=== PATIENT | male | born 1975 | race Caucasian/White ===

== ENCOUNTER → 2018-02-27 | Outpatient (REF) | payer OTHER, MEDICAID ==
[2018-02-27 15:41] LABS: ALBUMIN 3.6 GM/DL (3.2-5.2); ALBUMIN/GLOBULIN RATIO 1.06 (1.00-1.93); ALKALINE PHOSPHATASE 71 U/L (45-117); ALT/SGPT 22 U/L (12-78); ANION GAP 8 MEQ/L (8-16); AST/SGOT 14 U/L (7-37); BILIRUBIN,TOTAL 0.3 MG/DL (0.2-1.0); BLOOD UREA NITROGEN 9 MG/DL (7-18); CALCIUM LEVEL 8.4 MG/DL (8.5-10.1); CARBON DIOXIDE LEVEL 30 MEQ/L (21-32); CHLORIDE LEVEL 102 MEQ/L (98-107); CHOLESTEROL LEVEL 186 MG/DL (<200); CREATININE FOR GFR 1.04 MG/DL (0.70-1.30); GLOMERULAR FILTRATION RATE > 60.0 (>60); GLUCOSE, FASTING 93 MG/DL (70-100); HDL CHOLESTEROL 34 MG/DL (>40); NON-HDL-C 152 MG/DL; POTASSIUM SERUM 3.3 MEQ/L (3.5-5.1); SODIUM LEVEL 140 MEQ/L (136-145); TRIGLYCERIDES LEVEL 90 MG/DL (<150)
== END ==
LOC: M LAB REF 13:33
DX: I10 Essential (primary) hypertension (principal)

== ENCOUNTER 2018-05-18 12:10 | Outpatient (RCR) | payer OTHER | END 2018-06-11 | LOC: M CR 12:10 | DX: Z98.61 Coronary angioplasty status (principal) | CPT/HCPCS: 93798 ==

== ENCOUNTER → 2018-05-23 | Outpatient (REF) | LOC: M SMT 09:58 | DX: M17.11 Unilateral primary osteoarthritis, right knee (principal) ==

== ENCOUNTER 2018-12-01 14:02 | Outpatient (RCR) | payer OTHER ==
--- NOTE | 2018-11-27 10:31 | CARECAPL ---
Assessment Account #s: Initial Assessment General Diagnoses: NSTEMI, PTCA Date of event: Mar 28, 2018 Physician: Cristian Giordano Allergies: Coded Allergies: No Known Drug Allergy (Unverified Allergy, Mild, 12/11/12) Date Entered Program: Nov 27, 2018 Risk strat for cardiac event: High Exercise Date: Nov 27, 2018 Assessment: Initial Assessment Exercise Prescription Plan TO EDUCATE AND BUILD ENDURANCE THROUGH MONITORED EXERCISE Modalities initiated: Nustep (METS=1.2/RPE=3), Arm Aerometer (METS=2.62/RPE=4), Recumbent Bike (METS=3.1/RPE=3) Frequency: 3 Duration (Minutes) 30-60 minutes total exercise a day. 10-15 work intervals in minutes. 5 MIN PRN rest intervals in minutes. Functional Capacity Goal Sustained Metabolic Equivalent of a task (MET) goal of 4.5-5.5 for 15-20 minutes. Intensity: 3-Moderate Progression (METS) Increase by: 0.5 METS every: 5 sessions Angina with ex: No Target Heart Rate 35-40 BASED ON BETA DAVID THERAPY Resistance Training: Yes Weight (pounds): 2 Reps: 12-15 (WILL ADD) Hypertension: Yes Hypertension controlled with: Medication Resting 153/95 Peak Exercise BP 134/90 Medications Scheduled (Vyvanse), 30 MG PO DAILY, (Reported) Aspirin (Ecotrin Low Strength), 1 TAB PO DAILY, (Reported) Atorvastatin Calcium (Atorvastatin Calcium), 1 TAB PO DAILY, (Reported) Bupropion HCl (Wellbutrin Sr), 150 MG PO DAILY, (Reported) Chlorthalidone (Chlorthalidone), 1 TAB PO DAILY, (Reported) Clopidogrel Bisulfate (Plavix), 75 MG PO DAILY, (Reported) Fluoxetine HCl (Prozac), 20 MG PO DAILY, (Reported) Lisinopril (Lisinopril), 5 MG PO DAILY, (Reported) Metoprolol Succinate (Metoprolol Succinate ER), 25 MG PO DAILY, (Reported) Nitroglycerin (Nitroglycerin), 0.4 MG SL ASDIRECTED, (Reported) Current BP 134/90 Med Change: No Intervention Resistance Training: Yes Education: Self pulse, Ex safety, S/S to report, Low NA diet, BP medication, RPE Scale, Equipment orientation, warm up/cool down, Understand BP, Physical Active Target Goals Individual exercise Rx (1) BP 140/90 or 130/80 if DM or CKD (1) Aerobic active 30+min 5 days per week (1) Nutrition Date: Nov 27, 2018 Assessment: Initial Assessment Lipid- med/supplement ATORVASTATIN Med Change: No Diabetes Diabetes: No Monitor Blood Sugar at home: No Medication Change: No Weight Management Weight (lbs): 184.6 Height (inches): 68 Waist Circumference (Inches): 40.5 BMI: 28 Weight goal: 150 Alcohol: special Diet Access Tool: Rate your plate Score: 41 Current Weight (pounds): 184.6 Intervention Fraud Manager Consult: No Nurse/patient discussion: Yes Dietary Goals TO MAKE HEART HEALTHY CHOICES Diet Class: Yes Referral to Diabetes education: No Referral to lipid clinic: No Referral to weight mangement p: No Education Eating Healthy Target goal LDL-C<100 if triglycerides are >200 Non-HDL-C should be <130 (1) LDL-C<70 for high risk patients (4) HbA1c<7% (1) BMI<25 Waist cir<40in M/<35in F (1) Education Date: Nov 27, 2018 Assessment: Initial Assessment Knowledge Test Score: 9 Family Support: Yes Tobacco use: Yes Tobacco Use Cigarettes smoked per day: 30 Smokeless tobacco: No Intervention Referral to smoking cessation: No Individual education and couns: Yes Tobacco Adjunct: No Education class schedule given: No Attended education classes: No Education: tobacco triggers, CAD, Risk factors, med compliance, cardiac A&P, Angina S/S, Sexuality Target Goals Complete cessation of tobacco use (1). Psychosocial Date: Nov 27, 2018 Assessment: Initial Assessment Psych Test (Initial/Discharge) Tool Used: CESD Score: 2 Intervention Physician Consult: No Physician Referral: No Psychotropic medication WELLBUTRIN Med Change: No Stress Management Class: No Uses Stress Management Skills: Yes Education Education: Coping Techniques, S/S depression, Relaxation Techniques Target Goal Assess presence or absence of depression using a valid screening tool (1). Maximize coping skills (2). Positive support system (2). Patient/Program Goal Preventative Medication: Yes Aspirin, Yes Clopidogrel, Yes Beta blockade, Yes Statin/OTR lipid Lowering Fall Risk Assess: Yes (NOT A FALL RISK) Provider Assessment Session Number: 1 Provider Assessment: Proceed with rehab Noel Pennington RN Nov 27, 2018 10:31
[~2018-12-01 14:02] MED LIST: ATOR80TA59 PO; BUPR15TA PO; CHLO50TA PO; ECOT81TA5 PO; LISI-542 PO; METO1TAB32 PO; NITR0.4S14 SL; PLAV1TAB2 PO; PROZ20CA11 PO; VYVA30CA4 PO
== END 2018-12-10 ==
LOC: M CR 14:02
PROVIDERS: ATTEND Internal Medicine Cardiovascular Disease
DX: I21.3 ST elevation (STEMI) myocardial infarction of unspecified site (principal); Z98.61 Coronary angioplasty status

== ENCOUNTER 2019-01-08 10:48 | Outpatient (RCR) | payer OTHER ==
--- NOTE | 2018-12-18 15:43 | CARECAPL ---
Assessment Account #s: Re-Assessment I General Diagnoses: NSTEMI, PTCA Date of event: Mar 28, 2018 Physician: Cristian Giordano Allergies: Coded Allergies: MS - No Known Drug Allergy (Unverified Allergy, Mild, 12/11/12) Date Entered Program: Nov 27, 2018 Risk strat for cardiac event: High Exercise Date: Dec 18, 2018 Assessment: Re-Assessment I Exercise Prescription Plan TO EDUCATE AND BUILD ENDURANCE THROUGH MONITORED EXERCISE Modalities initiated: Treadmill (METS=2.53/RPE=2), Nustep (METS=3.2/RPE=2), Arm Aerometer (MEETS=2.62/RPE=2), Dumbells (2#/RPE=2), Recumbent Bike (METS=3.1/RPE=2) Frequency: 3 Duration (Minutes) 30-60 minutes total exercise a day. 10-15 work intervals in minutes. 5 MIN PRN rest intervals in minutes. Functional Capacity Goal Sustained Metabolic Equivalent of a task (MET) goal of 4.5-5.5 for 15-20 minutes. Intensity: 3-Moderate Progression (METS) Increase by: 0.5 METS every: 5 sessions TOLERATED Angina with ex: No Target Heart Rate +35-40 BASED ON BETA DAVID THERAPY Resistance Training: Yes Weight (pounds): 2 Reps: 12-15 Hypertension: Yes Hypertension controlled with: Medication Resting 138/90 Peak Exercise BP 136/80 Medications Scheduled Aspirin (Ecotrin), 1 TAB PO DAILY, (Reported) Atorvastatin Calcium (Atorvastatin Calcium), 1 TAB PO DAILY, (Reported) Bupropion HCl (Wellbutrin Sr), 300 MG PO DAILY, (Reported) Chlorthalidone (Chlorthalidone), 1 TAB PO DAILY, (Reported) Clopidogrel Bisulfate (Plavix), 75 MG PO DAILY, (Reported) Lisinopril (Lisinopril), 5 MG PO DAILY, (Reported) Metoprolol Succinate (Metoprolol Succinate), 25 MG PO DAILY, (Reported) Nitroglycerin (Nitroglycerin), 0.4 MG SL ASDIRECTED, (Reported) Current BP 124/80 Med Change: No Intervention Resistance Training: Yes Education: Self pulse, Ex safety, S/S to report, Low NA diet, BP medication, RPE Scale, Equipment orientation, warm up/cool down, Understand BP, Physical Active Target Goals Individual exercise Rx (1) BP 140/90 or 130/80 if DM or CKD (1) Aerobic active 30+min 5 days per week (1) Nutrition Date: Dec 18, 2018 Assessment: Re-Assessment I Lipid- med/supplement ATORVASTATIN Med Change: No Diabetes Diabetes: No Monitor Blood Sugar at home: No Medication Change: No Weight Management Weight (lbs): 178.8 Special Diet: low salt, low-fat Alcohol: special Current Weight (pounds): 178.8 Intervention Magneto Repairer Consult: No Nurse/patient discussion: Yes Dietary Goals TO MAKE HEART HEALTHY CHOICES Diet Class: No Referral to Diabetes education: No Referral to lipid clinic: No Referral to weight mangement p: No Education Eating Healthy Target goal LDL-C<100 if triglycerides are >200 Non-HDL-C should be <130 (1) LDL-C<70 for high risk patients (4) HbA1c<7% (1) BMI<25 Waist cir<40in M/<35in F (1) Education Date: Dec 18, 2018 Assessment: Re-Assessment I Learning Barriers: ready Family Support: Yes Tobacco use: Yes Tobacco Use Cigarettes smoked per day: 30 Smokeless tobacco: No Intervention Referral to smoking cessation: No Individual education and couns: Yes (PATIENT STATES NOT READY TO QUIT SMOKING) Tobacco Adjunct: No Education class schedule given: No Attended education classes: No Education: tobacco triggers, CAD, Risk factors, med compliance, cardiac A&P, Angina S/S, Sexuality Target Goals Complete cessation of tobacco use (1). Psychosocial Date: Dec 18, 2018 Assessment: Re-Assessment I Intervention Physician Consult: No Physician Referral: No Psychotropic medication PROZAC AND WELLBUTRIN Med Change: No Stress Management Class: No Uses Stress Management Skills: Yes Education Education: Coping Techniques, S/S depression, Relaxation Techniques Target Goal Assess presence or absence of depression using a valid screening tool (1). Maximize coping skills (2). Positive support system (2). Patient/Program Goal Preventative Medication: Yes Aspirin, Yes Clopidogrel, Yes Beta blockade, Yes CESAR Inhibitor, Yes Statin/OTR lipid Lowering Fall Risk Assess: Yes (NOT A FALL RISK) Provider Assessment Provider Assessment: Proceed with rehab Noel Pennington RN Dec 18, 2018 15:43
--- NOTE | 2019-01-01 12:52 | CARECAPL ---
Assessment Account #s: Re-Assessment II General Diagnoses: NSTEMI, PTCA Date of event: Mar 28, 2018 Physician: Cristian Giordano Allergies: Coded Allergies: MS - No Known Drug Allergy (Unverified Allergy, Mild, 12/11/12) Date Entered Program: Nov 27, 2018 Risk strat for cardiac event: High (cardiac arrest) Exercise Date: Jan 01, 2019 Assessment: Re-Assessment II Exercise Prescription Plan to educate about cardiac risk factors and to provide a monitored exercise program to help build endurance and strength Modalities initiated: Treadmill (2.5/1.0 mts 3.26 rpe 4), Cardio-Strider, Nustep (L4mts 2.1 rep 3), Arm Aerometer (1.5 mts 2.66 rpe 3), Dumbells, Recumbent Bike (R2 mts 1 rpe 3) Frequency: 2-3 Duration (Minutes) 7-10 minutes total exercise a day. 30-60 work intervals in minutes. prn - rest intervals in minutes. Functional Capacity Goal Sustained Metabolic Equivalent of a task (MET) goal of 4.5-5.5 for 15-20 minutes. Intensity: 3-Moderate Progression (METS) Increase by: .5 METS every: 2-3 sessions Target Heart Rate r+35-40 betablocker therapy Resistance Training: Yes Weight (pounds): 3 Reps: 6-8 Medications Scheduled Aspirin (Ecotrin), 1 TAB PO DAILY, (Reported) Atorvastatin Calcium (Atorvastatin Calcium), 1 TAB PO DAILY, (Reported) Bupropion HCl (Wellbutrin Sr), 300 MG PO DAILY, (Reported) Chlorthalidone (Chlorthalidone), 1 TAB PO DAILY, (Reported) Clopidogrel Bisulfate (Plavix), 75 MG PO DAILY, (Reported) Lisinopril (Lisinopril), 5 MG PO DAILY, (Reported) Metoprolol Succinate (Metoprolol Succinate), 25 MG PO DAILY, (Reported) Nitroglycerin (Nitroglycerin), 0.4 MG SL ASDIRECTED, (Reported) Current BP 118/94 Med Change: No Education Goals Met: No Target Goals Individual exercise Rx (1) BP 140/90 or 130/80 if DM or CKD (1) Aerobic active 30+min 5 days per week (1) Nutrition Date: Jan 01, 2019 Assessment: Re-Assessment II Med Change: No Diabetes Diabetes: No Current Weight (pounds): 177 Weight Goal to maintain current weight, make healthier choices Intervention Mine Laborer Consult: No Nurse/patient discussion: Yes Diet Class: Yes (wiil see during program) Referral to Diabetes education: No Referral to lipid clinic: No Referral to weight mangement p: No Education Eating Healthy Education Goals Met: No Target goal LDL-C<100 if triglycerides are >200 Non-HDL-C should be <130 (1) LDL-C<70 for high risk patients (4) HbA1c<7% (1) BMI<25 Waist cir<40in M/<35in F (1) Education Date: Jan 01, 2019 Intervention Referral to smoking cessation: Yes Individual education and couns: Yes Tobacco Adjunct: Yes Education class schedule given: Yes Attended education classes: Yes Education: tobacco triggers (will encourage pt in smoking cessation), CAD, Risk factors, med compliance, cardiac A&P, Angina S/S, Sexuality Education Goals Met: No (continues to smoke. States not read) Target Goals Complete cessation of tobacco use (1). Psychosocial Date: Jan 01, 2019 Assessment: Re-Assessment II Intervention Physician Consult: No Physician Referral: No Psychotropic medication on maintenance medications prior to admission to Cardiac rehab Med Change: No Stress Management Class: Yes Uses Stress Management Skills: Yes Education Education: Coping Techniques, S/S depression, Relaxation Techniques, Other Education Goals Met: No Target Goal Assess presence or absence of depression using a valid screening tool (1). Maximize coping skills (2). Positive support system (2). Patient/Program Goal Preventative Medication: Yes Aspirin, Yes Clopidogrel, Yes Beta blockade, Yes CESAR Inhibitor, Yes Statin/OTR lipid Lowering Fall Risk Assess: No Provider Assessment Session Number: 6 Provider Assessment: No changes (slow to start program. Attendance better) Stephany Rapp RN Jan 01, 2019 11:22
== END 2019-01-09 ==
LOC: M CR 10:48
PROVIDERS: ATTEND Internal Medicine Cardiovascular Disease
DX: I21.4 Non-ST elevation (NSTEMI) myocardial infarction (principal)

== ENCOUNTER → 2020-05-15 | Outpatient (REF) | payer OTHER, MEDICAID ==
[2020-05-15 16:02] LABS: BASO # 0.1 10^3/uL (0.0-0.2); BASO % 1.1 % (0.0-1.0); EOS # 0.5 10^3/uL (0.0-0.5); EOS % 4.1 % (0.0-3.0); HEMOGLOBIN 15.4 g/dl (13.5-17.5); LYMPH # 3.9 10^3/uL (1.5-5.0); LYMPH % 34.6 % (24.0-44.0); MEAN CORPUSCULAR HEMOGLOBIN 31.6 pg (27.0-33.0); MEAN CORPUSCULAR HGB CONC 33.5 g/dl (32.0-36.5); MEAN CORPUSCULAR VOLUME 94.3 fl (80.0-96.0); MONO # 0.9 10^3/uL (0.0-0.8); MONO % 8.1 % (0.0-5.0); NEUTROPHILS # 5.8 10^3/uL (1.5-8.5); NEUTROPHILS % 51.6 % (36.0-66.0); PLATELET COUNT, AUTOMATED 288 10^3/uL (150-450); RED BLOOD COUNT 4.88 10^6/uL (4.30-6.10); WHITE BLOOD COUNT 11.1 10^3/uL (4.0-10.0)
[2020-05-15 17:06] LABS: HEMOGLOBIN A1c 5.6 %
[2020-05-15 17:42] LABS: ALBUMIN 4.1 GM/DL (3.2-5.2); ALT/SGPT 21 U/L (12-78); BILIRUBIN,TOTAL 0.6 MG/DL (0.2-1.0); BLOOD UREA NITROGEN 13 MG/DL (7-18); CALCIUM LEVEL 8.9 MG/DL (8.5-10.1); CARBON DIOXIDE LEVEL 28 MEQ/L (21-32); CHLORIDE LEVEL 103 MEQ/L (98-107); CHOLESTEROL LEVEL 126 MG/DL (<200); CREATININE FOR GFR 1.28 MG/DL (0.70-1.30); FREE T4 1.41 NG/DL (0.76-1.46); GLOMERULAR FILTRATION RATE > 60.0 (>60); GLUCOSE, FASTING 93 MG/DL (70-100); HDL CHOLESTEROL 25 MG/DL (>40); LDL CHOLESTEROL 69 MG/DL (<100); NON-HDL-C 101 MG/DL; POTASSIUM SERUM 3.9 MEQ/L (3.5-5.1); SODIUM LEVEL 136 MEQ/L (136-145); TOTAL 25(OH) VITAMIN D 18.6 NG/ML (30.0-100.0); TOTAL PROTEIN 7.7 GM/DL (6.4-8.2); TRIGLYCERIDES LEVEL 159 MG/DL (<150)
== END ==
LOC: M LAB REF 14:38
PROVIDERS: ATTEND Nurse Practitioner Family
DX: E87.6 Hypokalemia (principal); F17.210 Nicotine dependence, cigarettes, uncomplicated; E78.5 Hyperlipidemia, unspecified; F41.1 Generalized anxiety disorder; I10 Essential (primary) hypertension; F33.42 Major depressive disorder, recurrent, in full remission

== ENCOUNTER 2020-08-19 11:46 | Emergency (ER) | payer MEDICAID, OTHER ==
[~2020-08-19] VITALS: Ht 170.2 cm; Wt 76.8 kg
[2020-08-19 12:36] LABS: BASO # 0.1 10^3/uL (0.0-0.2); BASO % 0.8 % (0.0-1.0); EOS # 0.5 10^3/uL (0.0-0.5); EOS % 3.8 % (0.0-3.0); HEMATOCRIT 46.2 % (42.0-52.0); HEMOGLOBIN 15.2 g/dl (13.5-17.5); LYMPH # 3.4 10^3/uL (1.5-5.0); LYMPH % 28.2 % (24.0-44.0); MEAN CORPUSCULAR HEMOGLOBIN 30.8 pg (27.0-33.0); MEAN CORPUSCULAR HGB CONC 32.9 g/dl (32.0-36.5); MEAN CORPUSCULAR VOLUME 93.7 fl (80.0-96.0); MONO # 1.2 10^3/uL (0.0-0.8); NEUTROPHILS # 6.9 10^3/uL (1.5-8.5); NEUTROPHILS % 56.6 % (36.0-66.0); PLATELET COUNT, AUTOMATED 311 10^3/uL (150-450); RED BLOOD COUNT 4.93 10^6/uL (4.30-6.10); WHITE BLOOD COUNT 12.2 10^3/uL (4.0-10.0)
[2020-08-19 13:04] LABS: ALBUMIN 3.9 GM/DL (3.2-5.2); ALT/SGPT 25 U/L (12-78); BILIRUBIN,DIRECT < 0.1 MG/DL (0.0-0.2); BILIRUBIN,TOTAL 0.3 MG/DL (0.2-1.0); BLOOD UREA NITROGEN 12 MG/DL (7-18); CALCIUM LEVEL 9.3 MG/DL (8.5-10.1); CARBON DIOXIDE LEVEL 30 MEQ/L (21-32); CHLORIDE LEVEL 100 MEQ/L (98-107); CK-MB VALUE MASS 1.1 NG/ML (<3.6); CPK CREATINE PHOSPHOKINASE 127 U/L (39-308); CREATININE FOR GFR 1.33 MG/DL (0.70-1.30); GLOMERULAR FILTRATION RATE > 60.0 (>60); GLUCOSE, FASTING 103 MG/DL (70-100); MB/CK RELATIVE INDEX 0.87 (< OR =4); POTASSIUM SERUM 3.5 MEQ/L (3.5-5.1); SODIUM LEVEL 137 MEQ/L (136-145); TOTAL PROTEIN 7.5 GM/DL (6.4-8.2); TROPONIN I < 0.02 NG/ML (< 0.10)
[2020-08-19] MEDS ORDERED: ALBUTEROL 90 MCG/ACT 8GM HFA INHALER INH ONE (13:45)
[2020-08-19 14:23] LABS: ABG BASE EXCESS 5.3 (-2.0-2.0); ABG HCO3 29.8 MEQ/L (22.0-26.0); ABG O2 SATURATION 94.1 % (95.0-99.0); ABG STANDARD HCO3 29.1 MEQ/L (22.0-26.0); ABG TOTAL CO2 31.1 MEQ/L (22.0-29.0); ABG pH (ARTERIAL) 7.459 UNITS (7.350-7.450)
--- NOTE | 2020-08-19 15:28 | REP ---
INDICATION: sob. COMPARISON: None. TECHNIQUE: SINGLE PORTABLE AP VIEW OF THE CHEST WAS PERFORMED. FINDINGS: THERE IS NO ACUTE INFILTRATE OR PULMONARY EDEMA. LUNGS ARE CLEAR. HEART IS NOT SIGNIFICANTLY ENLARGED. MEDIASTINAL SILHOUETTE IS UNREMARKABLE. THE VISUALIZED OSSEOUS STRUCTURES ARE INTACT. IMPRESSION: NO ACUTE PULMONARY DISEASE. <Electronically signed by Dilip Frank > 08/19/20 [id number]
[2020-08-19] MEDS ORDERED: PROAAER10 INH (15:37)
[2020-08-19] MEDS ORDERED: FLON1SPR NARES (15:38)
[2020-08-19 15:45] VITALS: BP 158/80
--- NOTE | 2020-08-20 08:16 | ECGEPIP ---
[facility] - ED Test Date: 2020-08-19 Pat Name: FLORENCE LADD Department: Room: - Gender: Male Black Off Worker: MARCELINO : 1975 Requested By: CRISTIAN Nagy Order Number: [id number] Reading MD: Cristian Patel Measurements Intervals [place] Rate: 78 P: 41 IA: 137 QRS: 262 QRSD: 121 T: 32 QT: 384 QTc: 440 Interpretive Statements SINUS RHYTHM POSSIBLE RIGHT VENTRICULAR HYPERTROPHY Comparison tracing not on file Electronically Signed on 08-20-2020 8:16:10 EST by Cristian Patel
== END 2020-08-19 16:01 | disposition home or self-care (01) ==
LOC: EDBD 11:46 → M ED 11:46
DX: R06.02 Shortness of breath (principal); R05 Cough; I10 Essential (primary) hypertension; J44.9 Chronic obstructive pulmonary disease, unspecified; Z95.5 Presence of coronary angioplasty implant and graft; F17.200 Nicotine dependence, unspecified, uncomplicated; Z79.899 Other long term (current) drug therapy; Z79.82 Long term (current) use of aspirin; Z79.02 Long term (current) use of antithrombotics/antiplatelets

== ENCOUNTER → 2020-11-07 | Outpatient (REF) | payer OTHER ==
[~2020-11-07] MED LIST changes: +FLON1SPR NARES; -LISI-542 PO; +LISI-898 PO; +PROAAER10 INH
[2020-11-07 12:37] LABS: BASO # 0.1 10^3/uL (0.0-0.2); BASO % 1.1 % (0.0-1.0); EOS # 0.4 10^3/uL (0.0-0.5); EOS % 3.6 % (0.0-3.0); HEMATOCRIT 44.9 % (42.0-52.0); HEMOGLOBIN 14.7 g/dl (13.5-17.5); LYMPH # 3.4 10^3/uL (1.5-5.0); LYMPH % 27.7 % (24.0-44.0); MEAN CORPUSCULAR HEMOGLOBIN 30.9 pg (27.0-33.0); MEAN CORPUSCULAR HGB CONC 32.7 g/dl (32.0-36.5); MEAN CORPUSCULAR VOLUME 94.5 fl (80.0-96.0); NEUTROPHILS # 7.3 10^3/uL (1.5-8.5); PLATELET COUNT, AUTOMATED 291 10^3/uL (150-450); RED BLOOD COUNT 4.75 10^6/uL (4.30-6.10); WHITE BLOOD COUNT 12.3 10^3/uL (4.0-10.0)
[2020-11-07 13:15] LABS: BILIRUBIN,TOTAL 0.3 MG/DL (0.2-1.0); CALCIUM LEVEL 9.1 MG/DL (8.5-10.1); CHOLESTEROL RISK RATIO 6.032 (<5); CREATININE FOR GFR 1.44 MG/DL (0.70-1.30); GLOMERULAR FILTRATION RATE 56.5 (>60); POTASSIUM SERUM 4.2 MEQ/L (3.5-5.1); TOTAL PROTEIN 7.3 GM/DL (6.4-8.2)
[2020-11-07 13:41] LABS: HEMOGLOBIN A1c 5.6 %
[2020-11-07 14:03] LABS: TOTAL 25(OH) VITAMIN D 78.3 NG/ML (30.0-100.0)
[2020-11-09 08:08] LABS: PSA TOTAL 0.6 ng/mL (0.0-4.0)
== END ==
LOC: M LAB REF 11:35
PROVIDERS: ATTEND Nurse Practitioner Family
DX: F41.1 Generalized anxiety disorder (principal); F17.200 Nicotine dependence, unspecified, uncomplicated; I10 Essential (primary) hypertension

== ENCOUNTER → 2021-02-27 | Outpatient (REF) | payer OTHER ==
[2021-02-27 19:05] LABS: BASO # 0.1 10^3/uL (0.0-0.2); BASO % 0.8 % (0.0-1.0); EOS # 0.3 10^3/uL (0.0-0.5); HEMATOCRIT 46.1 % (42.0-52.0); HEMOGLOBIN 15.1 g/dl (13.5-17.5); LYMPH # 3.2 10^3/uL (1.5-5.0); LYMPH % 30.2 % (24.0-44.0); MEAN CORPUSCULAR HEMOGLOBIN 31.7 pg (27.0-33.0); MEAN CORPUSCULAR HGB CONC 32.8 g/dl (32.0-36.5); MEAN CORPUSCULAR VOLUME 96.6 fl (80.0-96.0); MONO # 0.8 10^3/uL (0.0-0.8); MONO % 7.7 % (2.0-8.0); NEUTROPHILS # 6.1 10^3/uL (1.5-8.5); NEUTROPHILS % 57.6 % (36.0-66.0); PLATELET COUNT, AUTOMATED 281 10^3/uL (150-450); RED BLOOD COUNT 4.77 10^6/uL (4.30-6.10); WHITE BLOOD COUNT 10.5 10^3/uL (4.0-10.0)
[2021-02-27 19:35] LABS: BLOOD UREA NITROGEN 8 MG/DL (7-18); CALCIUM LEVEL 8.8 MG/DL (8.5-10.1); CARBON DIOXIDE LEVEL 27 MEQ/L (21-32); CHLORIDE LEVEL 109 MEQ/L (98-107); CREATININE FOR GFR 1.23 MG/DL (0.70-1.30); GLOMERULAR FILTRATION RATE > 60.0 (>60); GLUCOSE, FASTING 92 MG/DL (70-100); POTASSIUM SERUM 4.8 MEQ/L (3.5-5.1); SODIUM LEVEL 139 MEQ/L (136-145)
[2021-02-27 19:36] LABS: ALBUMIN 3.8 GM/DL (3.2-5.2); ALT/SGPT 20 U/L (12-78); BILIRUBIN,TOTAL 0.4 MG/DL (0.2-1.0); CHOLESTEROL LEVEL 155 MG/DL (<200); CHOLESTEROL RISK RATIO 4.843 (<5); HDL CHOLESTEROL 32 MG/DL (>40); LDL CHOLESTEROL 101 MG/DL (<100); MAGNESIUM LEVEL 1.8 MG/DL (1.8-2.4); NON-HDL-C 123 MG/DL; TOTAL PROTEIN 6.9 GM/DL (6.4-8.2); TRIGLYCERIDES LEVEL 108 MG/DL (<150)
[2021-02-27 20:15] LABS: HEPATITIS C VIRUS ABY INDEX < 0.0 INDEX (<0.8)
[2021-02-27 20:16] LABS: HIV 1&2 SCREEN CENTAUR NEGATIVE (NEGATIVE)
== END ==
LOC: M LAB REF 16:22
PROVIDERS: ATTEND Nurse Practitioner Family
DX: F17.200 Nicotine dependence, unspecified, uncomplicated (principal); I10 Essential (primary) hypertension; F41.1 Generalized anxiety disorder

== ENCOUNTER 2022-01-31 04:06 | Emergency (ER) | payer OTHER ==
[~2022-01-31] VITALS: Ht 177.8 cm; Wt 81.8 kg
[~2022-01-31 04:06] MED LIST changes: -LISI-898 PO; +LISI5TAB11 PO
[2022-01-31] MEDS ORDERED: OXYMETAZOLINE 0.05% NASAL SPRAY (AFRIN) ONE (04:10)
[2022-01-31 04:44] LABS: BASO # 0.1 10^3/uL (0.0-0.2); BASO % 0.9 % (0.0-1.0); EOS # 0.7 10^3/uL (0.0-0.5); EOS % 5.4 % (0.0-3.0); HEMATOCRIT 43.3 % (42.0-52.0); HEMOGLOBIN 14.8 g/dl (13.5-17.5); LYMPH # 4.8 10^3/uL (1.5-5.0); LYMPH % 38.5 % (24.0-44.0); MEAN CORPUSCULAR HGB CONC 34.2 g/dl (32.0-36.5); MEAN CORPUSCULAR VOLUME 93.7 fl (80.0-96.0); MONO # 0.9 10^3/uL (0.0-0.8); MONO % 7.2 % (2.0-8.0); NEUTROPHILS # 5.9 10^3/uL (1.5-8.5); NEUTROPHILS % 47.4 % (36.0-66.0); PLATELET COUNT, AUTOMATED 267 10^3/uL (150-450); RED BLOOD COUNT 4.62 10^6/uL (4.30-6.10); WHITE BLOOD COUNT 12.4 10^3/uL (4.0-10.0)
[2022-01-31 04:55] LABS: INR 0.9; PROTHROMBIN TIME 12.6 SECONDS (12.7-14.5)
[2022-01-31 04:56] LABS: PARTIAL THROMBOPLASTIN TIME 28.6 SECONDS (25.9-37.0)
[2022-01-31 05:21] LABS: BLOOD UREA NITROGEN 14 MG/DL (7-18); CALCIUM LEVEL 8.6 MG/DL (8.5-10.1); CARBON DIOXIDE LEVEL 27 MEQ/L (21-32); CHLORIDE LEVEL 111 MEQ/L (98-107); CREATININE FOR GFR 1.29 MG/DL (0.70-1.30); GLOMERULAR FILTRATION RATE > 60.0 (>60); GLUCOSE, FASTING 105 MG/DL (70-100); POTASSIUM SERUM 4.8 MEQ/L (3.5-5.1); SODIUM LEVEL 143 MEQ/L (136-145)
[2022-01-31 05:44] VITALS: BP 150/89
== END 2022-01-31 05:50 | disposition home or self-care (01) ==
LOC: M ED 04:06
DX: R04.0 Epistaxis (principal); I25.10 Atherosclerotic heart disease of native coronary artery without angina pectoris; F17.200 Nicotine dependence, unspecified, uncomplicated; Z79.01 Long term (current) use of anticoagulants; Z79.899 Other long term (current) drug therapy

== ENCOUNTER 2022-02-01 19:29 | Emergency (ER) | payer OTHER ==
[~2022-02-01] VITALS: Ht 170.2 cm; Wt 81.8 kg
[2022-02-01] MEDS ORDERED: SILVER NITRATE APPLICATOR (1 = QTY 10) TOP ONE (21:10)
[2022-02-01 22:11] VITALS: BP 127/76
== END 2022-02-01 22:35 | disposition home or self-care (01) ==
LOC: M ED 19:29
DX: R04.0 Epistaxis (principal); I10 Essential (primary) hypertension; E78.5 Hyperlipidemia, unspecified; J44.9 Chronic obstructive pulmonary disease, unspecified; F17.200 Nicotine dependence, unspecified, uncomplicated; Z79.899 Other long term (current) drug therapy

== ENCOUNTER → 2022-02-09 | Outpatient (RCR) | payer OTHER | LOC: M PT 14:21 | PROVIDERS: ATTEND Family Medicine Addiction Medicine | DX: M25.561 Pain in right knee (principal) ==

== ENCOUNTER → 2022-10-11 | Outpatient (REF) | payer OTHER ==
[~2022-10-11] MED LIST changes: +CLOP75TA99 PO; -PLAV1TAB2 PO
[2022-10-11 15:21] LABS: ALBUMIN 3.5 G/DL (3.2-5.2); ALKALINE PHOSPHATASE 74 U/L (46-116); ALT/SGPT 14 U/L (7.0-40); AST/SGOT 17 U/L (<34); BILIRUBIN,TOTAL 0.4 MG/DL (0.3-1.2); BLOOD UREA NITROGEN 11 MG/DL (9-23); CALCIUM LEVEL 8.8 MG/DL (8.5-10.1); CARBON DIOXIDE LEVEL 29 MMOL/L (20-31); CHLORIDE LEVEL 105 MMOL/L (98-107); CHOLESTEROL LEVEL 137 MG/DL (<200); CHOLESTEROL RISK RATIO 4.61 (<5); CREATININE FOR GFR 1.08 MG/DL (0.70-1.30); GLOMERULAR FILTRATION RATE > 60.0 (>60); GLUCOSE, FASTING 85 MG/DL (60-100); HDL CHOLESTEROL 29.7 MG/DL (>40); LDL CHOLESTEROL 85.9 MG/DL (<100); NON-HDL-C 107 MG/DL; POTASSIUM SERUM 5.4 MMOL/L (3.5-5.1); SODIUM LEVEL 138 MMOL/L (136-145); TOTAL PROTEIN 7.1 G/DL (5.7-8.2); TRIGLYCERIDES LEVEL 107 MG/DL (<150)
[2022-10-11 15:22] LABS: THYROID STIMULATING HORMONE 1.053 uIU/ML (0.55-4.78)
== END ==
LOC: M LAB REF 12:13
PROVIDERS: ATTEND Family Medicine Addiction Medicine
DX: F17.200 Nicotine dependence, unspecified, uncomplicated (principal); F41.1 Generalized anxiety disorder; I10 Essential (primary) hypertension

== ENCOUNTER → 2023-05-20 | Outpatient (REF) | payer OTHER ==
[2023-05-20 14:14] LABS: ALBUMIN 3.7 G/DL (3.2-5.2); ALKALINE PHOSPHATASE 56 U/L (46-116); ALT/SGPT 16 U/L (7.0-40); AST/SGOT 10 U/L (<34); BILIRUBIN,TOTAL 0.2 MG/DL (0.3-1.2); BLOOD UREA NITROGEN 9 MG/DL (9-23); CALCIUM LEVEL 8.7 MG/DL (8.5-10.1); CARBON DIOXIDE LEVEL 28 MMOL/L (20-31); CHLORIDE LEVEL 107 MMOL/L (98-107); CHOLESTEROL LEVEL 137 MG/DL (<200); CHOLESTEROL RISK RATIO 4.82 (<5); CREATININE FOR GFR 1.11 MG/DL (0.70-1.30); GLOMERULAR FILTRATION RATE > 60.0 (>60); GLUCOSE, FASTING 91 MG/DL (60-100); HDL CHOLESTEROL 28.4 MG/DL (>40); LDL CHOLESTEROL 75.2 MG/DL (<100); NON-HDL-C 108.6 MG/DL; POTASSIUM SERUM 4.4 MMOL/L (3.5-5.1); SODIUM LEVEL 140 MMOL/L (136-145); THYROID STIMULATING HORMONE 2.529 uIU/ML (0.55-4.78); TOTAL PROTEIN 7.1 G/DL (5.7-8.2); TRIGLYCERIDES LEVEL 167 MG/DL (<150)
== END ==
LOC: M LAB REF 11:45
PROVIDERS: ATTEND Family Medicine Addiction Medicine
DX: I10 Essential (primary) hypertension (principal)

== ENCOUNTER 2024-02-11 12:36 | Emergency (ER) | payer OTHER ==
[~2024-02-11] VITALS: Ht 170.2 cm; Wt 87.7 kg
[2024-02-11 15:01] LABS: BASO # 0.1 10^3/uL (0.0-0.2); BASO % 0.7 % (0.0-1.0); EOS # 0.4 10^3/uL (0.0-0.5); HEMATOCRIT 43.7 % (42.0-52.0); HEMOGLOBIN 14.7 g/dl (13.5-17.5); LYMPH # 3.4 10^3/uL (1.5-5.0); LYMPH % 32.1 % (24.0-44.0); MEAN CORPUSCULAR HEMOGLOBIN 32.5 pg (27.0-33.0); MEAN CORPUSCULAR HGB CONC 33.6 g/dl (32.0-36.5); MEAN CORPUSCULAR VOLUME 96.7 fl (80.0-96.0); MONO # 0.9 10^3/uL (0.0-0.8); MONO % 8.1 % (2.0-8.0); NEUTROPHILS # 5.8 10^3/uL (1.5-8.5); NEUTROPHILS % 54.4 % (36.0-66.0); PLATELET COUNT, AUTOMATED 242 10^3/uL (150-450); RED BLOOD COUNT 4.52 10^6/uL (4.30-6.10); WHITE BLOOD COUNT 10.7 10^3/uL (4.0-10.0)
[2024-02-11 15:14] LABS: INR 0.96; PARTIAL THROMBOPLASTIN TIME 27.7 SECONDS (24.8-34.2); PROTHROMBIN TIME 12.5 SECONDS (12.5-14.5)
[2024-02-11 15:36] LABS: LIPASE 42 U/L (12-53)
[2024-02-11 15:38] LABS: ALBUMIN 3.7 G/DL (3.2-5.2); ALKALINE PHOSPHATASE 67 U/L (46-116); ALT/SGPT 15 U/L (7.0-40); AST/SGOT 9 U/L (<34); BILIRUBIN,DIRECT < 0.1 MG/DL (<0.4); BILIRUBIN,TOTAL 0.3 MG/DL (0.3-1.2); BLOOD UREA NITROGEN 13 MG/DL (9-23); CALCIUM LEVEL 8.7 MG/DL (8.5-10.1); CARBON DIOXIDE LEVEL 30 MMOL/L (20-31); CHLORIDE LEVEL 108 MMOL/L (98-107); CREATININE FOR GFR 1.18 MG/DL (0.70-1.30); GLOMERULAR FILTRATION RATE > 60.0 (>60); GLUCOSE, FASTING 87 MG/DL (60-100); POTASSIUM SERUM 4.5 MMOL/L (3.5-5.1); SODIUM LEVEL 140 MMOL/L (136-145); TOTAL PROTEIN 6.5 G/DL (5.7-8.2)
[2024-02-11 15:40] LABS: FREE T4 1.14 NG/DL (0.89-1.76); THYROID STIMULATING HORMONE 0.874 uIU/ML (0.55-4.78)
[2024-02-11] MEDS ORDERED: LASI20TA3 PO (15:58)
[2024-02-11] MEDS: FUROSEMIDE 20 MG TAB PO ONE (16:04)
[2024-02-11 16:06] VITALS: BP 156/85; TEMP 97; O2SAT 100
== END 2024-02-11 16:15 | disposition home or self-care (01) ==
LOC: M ED 12:36
DX: R60.0 Localized edema (principal); I45.19 Other right bundle-branch block; I42.2 Other hypertrophic cardiomyopathy; I10 Essential (primary) hypertension; E78.5 Hyperlipidemia, unspecified; F17.200 Nicotine dependence, unspecified, uncomplicated; Z86.79 Personal history of other diseases of the circulatory system; Z79.52 Long term (current) use of systemic steroids; Z79.82 Long term (current) use of aspirin; Z79.811 Long term (current) use of aromatase inhibitors; Z79.899 Other long term (current) drug therapy

== ENCOUNTER 2024-08-01 09:46 | Emergency (ER) | payer OTHER, SELFPAY ==
[~2024-08-01] VITALS: Ht 170.2 cm; Wt 78.9 kg
[~2024-08-01 09:46] MED LIST changes: +LASI20TA3 PO
[2024-08-01] MEDS: dexAMETHasone 20MG/5ML VIAL IV ONE (12:01)
[2024-08-01 12:04] LABS: BASO # 0.1 10^3/uL (0.0-0.2); BASO % 0.7 % (0.0-1.0); EOS # 0.4 10^3/uL (0.0-0.5); EOS % 2.7 % (0.0-3.0); HEMOGLOBIN 17.1 g/dl (13.5-17.5); LYMPH # 2.6 10^3/uL (1.5-5.0); LYMPH % 18.9 % (24.0-44.0); MEAN CORPUSCULAR HEMOGLOBIN 31.5 pg (27.0-33.0); MEAN CORPUSCULAR HGB CONC 32.9 g/dl (32.0-36.5); MEAN CORPUSCULAR VOLUME 95.8 fl (80.0-96.0); MONO # 1.4 10^3/uL (0.0-0.8); MONO % 10.2 % (2.0-8.0); NEUTROPHILS # 9.1 10^3/uL (1.5-8.5); PLATELET COUNT, AUTOMATED 283 10^3/uL (150-450); RED BLOOD COUNT 5.43 10^6/uL (4.30-6.10); WHITE BLOOD COUNT 13.6 10^3/uL (4.0-10.0)
[2024-08-01] MEDS: IPRATROPIUM 0.5MG/ALBUTEROL 2.5MG INH SOL UD 3ML (DUONEB) NEB SCH (12:16)
[2024-08-01 12:30] LABS: ALBUMIN 3.9 G/DL (3.2-5.2); ALKALINE PHOSPHATASE 87 U/L (40-129); ALT/SGPT 15 U/L (7.0-40); AST/SGOT 11 U/L (<34); BILIRUBIN,DIRECT 0.2 MG/DL (<0.4); BILIRUBIN,TOTAL 0.6 MG/DL (0.3-1.2); BLOOD UREA NITROGEN 10 MG/DL (9-23); CALCIUM LEVEL 9.8 MG/DL (8.5-10.1); CARBON DIOXIDE LEVEL 27 MMOL/L (20-31); CHLORIDE LEVEL 103 MMOL/L (98-107); CK-MB VALUE MASS < 1.0 NG/ML (<3.6); CREATININE FOR GFR 1.09 MG/DL (0.70-1.30); GLOMERULAR FILTRATION RATE > 60.0 (>60); GLUCOSE, FASTING 94 MG/DL (60-100); POTASSIUM SERUM 4.6 MMOL/L (3.5-5.1); SODIUM LEVEL 138 MMOL/L (136-145); TOTAL PROTEIN 8.2 G/DL (5.7-8.2)
[2024-08-01 12:32] LABS: CPK CREATINE PHOSPHOKINASE 83 U/L (46-171)
[2024-08-01 13:43] LABS: CK-MB VALUE MASS < 1.0 NG/ML (<3.6)
[2024-08-01 13:46] LABS: CPK CREATINE PHOSPHOKINASE 77 U/L (46-171); MB/CK RELATIVE INDEX 1.29 (< OR =4)
[2024-08-01] MEDS ORDERED: PRED20TA PO (14:50)
[2024-08-01 15:35] VITALS: BP 153/79; TEMP 97.7; O2SAT 92
== END 2024-08-01 15:31 | disposition home or self-care (01) ==
LOC: M ED 09:46
DX: J20.6 Acute bronchitis due to rhinovirus (principal); I45.10 Unspecified right bundle-branch block; R00.0 Tachycardia, unspecified; I10 Essential (primary) hypertension; E11.9 Type 2 diabetes mellitus without complications; J44.9 Chronic obstructive pulmonary disease, unspecified; I25.2 Old myocardial infarction; F17.210 Nicotine dependence, cigarettes, uncomplicated
CPT/HCPCS: 71045; 80048; 80076; 82550; 82553; 83605; 83880; 84484; 85025; 87486; 87581; 87633; 87798; 93005; 93041; 94640; 94760; 96374; 99285; J1100

== ENCOUNTER 2025-05-16 11:35 | Emergency (ER) | payer SELFPAY ==
[~2025-05-16] VITALS: Ht 170.2 cm; Wt 83.2 kg
[~2025-05-16 11:35] MED LIST changes: +PRED20TA PO; -PROZ20CA11 PO; +PROZ20CA12 PO
[2025-05-16 11:37] VITALS: BP 153/93; TEMP 97.7; O2SAT 92
[2025-05-16] MEDS: IPRATROPIUM 0.5 MG/ALBUTEROL 2.5 MG INH SOL UD 3 ML NEB ONE ×2 (12:33→15:05)
[2025-05-16 12:45] LABS: VENOUS BASE EXCESS 2.0 (-2.0-2.0); VENOUS HCO3 30.2 MMOL/L (23.0-27.0); VENOUS O2 SATURATION 73.9 % (60.0-80.0); VENOUS PARTIAL PRESSURE CO2 60.3 mmHg (38.0-50.0); VENOUS PARTIAL PRESSURE O2 39.3 mmHg (30.0-50.0); VENOUS PH 7.318 UNITS (7.330-7.430); VENOUS STANDARD HCO3 25.5 MMOL/L; VENOUS TOTAL CO2 32.1 MMOL/L (24.0-28.0)
[2025-05-16 12:53] LABS: BASO # 0.1 10^3/uL (0.0-0.2); BASO % 0.7 % (0.0-1.0); EOS # 0.3 10^3/uL (0.0-0.5); EOS % 2.8 % (0.0-3.0); LYMPH # 2.1 10^3/uL (1.5-5.0); LYMPH % 19.1 % (24.0-44.0); MONO # 1.3 10^3/uL (0.0-0.8); MONO % 11.7 % (2.0-8.0); NEUTROPHILS # 7.2 10^3/uL (1.5-8.5); NEUTROPHILS % 64.9 % (36.0-66.0); PLATELET COUNT, AUTOMATED 269 10^3/uL (150-450)
[2025-05-16 13:16] LABS: ALT/SGPT 15.0 U/L (7.0-40); AST/SGOT 19.0 U/L (<34); CALCIUM LEVEL 8.8 MG/DL (8.5-10.1); CARBON DIOXIDE LEVEL 30.0 MMOL/L (20-31); CHLORIDE LEVEL 104.0 MMOL/L (98-107); CK-MB VALUE MASS 3.0 NG/ML (<3.6); CREATININE FOR GFR 1.11 MG/DL (0.70-1.30); GLOMERULAR FILTRATION RATE 80.9 (>56); POTASSIUM SERUM 4.8 MMOL/L (3.5-5.1); SODIUM LEVEL 141.0 MMOL/L (136-145)
[2025-05-16 13:18] LABS: CPK CREATINE PHOSPHOKINASE 116.0 U/L (46-171); MB/CK RELATIVE INDEX 2.58 (< OR =4)
[2025-05-16 14:33] LABS: CK-MB VALUE MASS 2.6 NG/ML (<3.6)
[2025-05-16 14:35] LABS: CPK CREATINE PHOSPHOKINASE 99.0 U/L (46-171); MB/CK RELATIVE INDEX 2.62 (< OR =4)
[2025-05-16 15:34] LABS: CK-MB VALUE MASS 3.0 NG/ML (<3.6)
[2025-05-16 15:40] LABS: CPK CREATINE PHOSPHOKINASE 112.0 U/L (46-171); MB/CK RELATIVE INDEX 2.67 (< OR =4)
[2025-05-16] MEDS ORDERED: VENTAER INH (16:06)
== END 2025-05-16 16:17 | disposition left against medical advice (07) ==
LOC: M ED 11:35
DX: R06.02 Shortness of breath (principal); B34.9 Viral infection, unspecified; J44.9 Chronic obstructive pulmonary disease, unspecified; C44.90 Unspecified malignant neoplasm of skin, unspecified; F17.210 Nicotine dependence, cigarettes, uncomplicated; Z88.8 Allergy status to other drugs, medicaments and biological substances; Z79.51 Long term (current) use of inhaled steroids; Z79.1 Long term (current) use of non-steroidal anti-inflammatories (NSAID); Z79.899 Other long term (current) drug therapy; Z53.9 Procedure and treatment not carried out, unspecified reason